=== PATIENT | female | born 1970 | race Caucasian/White ===

== ENCOUNTER 2018-06-25 10:53 | Outpatient (RCR) | payer MEDICAID, SELFPAY | END 2018-06-25 23:59 | LOC: NS 10:53 | PROVIDERS: Visit Provider Orthopaedic Surgery | DX: E66.9 Obesity, unspecified (principal); Z68.42 Body mass index [BMI] 45.0-49.9, adult; Z71.3 Dietary counseling and surveillance | CPT/HCPCS: 97802 ==

== ENCOUNTER 2022-10-19 10:47 | Emergency (ER) | payer MEDICAID, SELFPAY ==
[2022-10-19 10:48] VITALS: BP 184/108; PULSE 99; RESP 14; TEMP 36.4; O2SAT 97; BMI 50.3
--- NOTE | 2022-10-19 11:19 | RAD_ITS ---
EXAM: XR CHEST, 1 VIEW CLINICAL INDICATION: chest pain TECHNIQUE: Frontal view of the chest. COMPARISON: No relevant prior studies available. FINDINGS: LUNGS AND PLEURAL SPACES: Unremarkable. No consolidation or edema. No pneumothorax. No effusion. HEART: Unremarkable. Cardiac silhouette not enlarged. MEDIASTINUM: Central airways and mediastinal contour are unremarkable. BONES/JOINTS: Unremarkable. SOFT TISSUES: Unremarkable. RAD/Chest 1 View (Portable) IMPRESSION: No radiographic evidence of acute cardiopulmonary disease. Electronically Signed: Elder Ross MD at 12:32 EDT ,
--- NOTE | 2022-10-19 11:19 | EKG12_ITS ---
Test Reason : Blood Pressure : / mmHG Vent. Rate : 088 BPM Atrial Rate : 088 BPM P-R Int : 140 ms QRS Dur : 086 ms QT Int : 370 ms P-R-T Axes : -12 -02 018 degrees QTc Int : 447 ms Normal sinus rhythm with sinus arrhythmia Normal ECG Confirmed by IRAIDA LANDERS, MIGUEL ([id number]), assistant film editor STEPHANIE MARTÍNEZ ([id number]) on 10/21/2022 8:10:36 AM Referred By: FREEDOM Confirmed By:MIGUEL KHOURY MD
--- NOTE | 2022-10-19 11:22 | RAD_ITS ---
EXAM: XR RIGHT SHOULDER COMPLETE, 2 OR MORE VIEWS CLINICAL INDICATION: Fall injury. TECHNIQUE: Two or more views of the right shoulder. COMPARISON: No relevant prior studies available. FINDINGS: BONES/JOINTS: Unremarkable. No acute fracture. No subluxation. Normal alignment. Preservation of the joint space. No sclerotic or destructive changes observed. SOFT TISSUES: Unremarkable. No soft tissue swelling or gas. No radiopaque foreign body. RAD/Shoulder min 2 Views IMPRESSION: Negative right shoulder x-rays. Electronically Signed: Elder Ross MD at 12:32 EDT ,
--- NOTE | 2022-10-19 11:22 | CT_ITS ---
EXAM: CT HEAD WITHOUT INTRAVENOUS CONTRAST CLINICAL INDICATION: Seizure. TECHNIQUE: Multiple axial images were obtained of the head without intravenous contrast. This CT exam was performed using one or more of the following dose reduction techniques: automated exposure control, adjustment of the mA and/or kV according to patient size, and/or use of iterative reconstruction technique. RADIATION DOSE: CTDIvol = 47.06 mGy, DLP = 872.68 mGy-cm COMPARISON: No relevant prior studies available. FINDINGS: BRAIN AND EXTRA-AXIAL SPACES: Unremarkable. No intra- or extra-axial hemorrhage. No evidence of acute infarct. No intracranial mass or mass effect. There is preservation of the cooper/white matter interface. Posterior fossa structures are unremarkable. Ventricles are appropriate for age. No hydrocephalus. Basal cisterns are patent. BONES/JOINTS: Unremarkable. No discrete lytic or blastic abnormalities. SINUSES: Unremarkable as visualized. Clear. MASTOID AIR CELLS: Unremarkable. Clear. ORBITS: Visualized globes, extraocular muscles, optic nerves and retrobulbar fat appear unremarkable. CT/Brain/Head without Contrast IMPRESSION: Negative head/brain CT without intravenous contrast. Electronically Signed: Elder Ross MD at 12:31 EDT ,
[2022-10-19 11:31] VITALS: O2SAT 98
[2022-10-19] MEDS: 0.9% Normal Saline 1,000 ML 1000 ML IV (11:31)
[2022-10-19 11:34] LABS: Absolute Lymphocyte Count 1.89 X10^3/uL (0.83-4.51); Absolute Neutrophil Count 8.1 X10^3/uL (2.0-7.7); Basophil# 0.04 X10^3/uL; Basophil% 0.4 % (0-1); Eosinophil# 0.14 X10^3/uL; Eosinophils% 1.3 % (0-5); Hematocrit 43.1 % (37-47); Hemoglobin 13.8 g/dL (12.0-15.0); Lymphocyte # 1.89 X10^3/ul (0.83-4.51); Lymphocyte % 17.6 % (19-41); Mean Corpuscular Hgb 28.5 pg (27.0-32.0); Mean Platelet Vol. 9.1 fl (6.2-12.0); Monocyte# 0.55 X10^3/uL; Monocyte% 5.1 % (0-10); NRBC Flagged by Analyzer 0 % (0-5); Neutrophil # 8.06 X10^3/uL (2.7-7.7); Neutrophil % 75.1 % (47-70); Platelet Count 370 K/mm3 (150-450); RBC Distribution Width CV 13.6 % (11.6-14.6); RBC Distribution Width SD 44.4 fl (35.1-43.9); Red Blood Count 4.84 M/mm3 (4.2-5.4); White Blood Count 10.7 K/mm3 (4.4-11.0)
--- NOTE | 2022-10-19 11:38 | EDS_ITS ---
HPI <ROSE Durand - Last Filed: 10/19/22 13:40> History of Present Illness Chief Complaint: Seizure Narrative Narrative: Patient is a 52-year-old female with history of morbid obesity, hypertension who does not see a primary care physician who presents to the emergency department after a syncopal episode/seizure while watching a baseball game. She was outside watching a young nephew's baseball game, when they went to sit down, per the bystanders, she was falling down, she was caught and then she had a shaking like seizure for 2 minutes. It is unknown whether the patient had a postictal episode. The patient remembers being in the ambulance. She denies any history of seizure, she has been feeling more lightheaded and near syncopal over the last several weeks. She denies any chest pain or shortness of breath. She does complain of right shoulder pain. She is not sure if she fell on it or not. Per the bystanders did not hit her head or neck. Patient is moving all extremities and acting appropriate this time. PFSH <ROSE Durand - Last Filed: 10/19/22 13:40> REPLACED BY [facility] Medical History (Updated 10/19/22 @ 13:39 by ROSE Durand) Hypertension Home Medications NK 10/19/22 [History Last Taken Unknown] Allergy/AdvReac Type Severity Reaction Status Date / Time amoxicillin [From Augmentin] Allergy Rash Verified 10/19/22 10:51 clavulanic acid Allergy Rash Verified 10/19/22 10:51 [From Augmentin] Social History Smoking Status: Current every day smoker tobacco type: cigarettes ROS <ROSE Durand - Last Filed: 10/19/22 13:40> ROS ED ROS Narrative Constitutional: Negative for fever, chills, weight loss, weakness Eyes: Negative for vision loss, vision change, double vision ENT: Negative for any sore throat, ear pain, congestion Cardiovascular: Negative for any chest pain, tightness, palpitations Respiratory: Negative for any cough, sputum production, hemoptysis, dyspnea, dyspnea on exertion, orthopnea Gastrointestinal: Negative for any abdominal pain, nausea, vomiting, diarrhea, constipation, blood in stool, blood in vomit : Negative for any urinary frequency, dysuria, retention, blood in urine Muscle skeletal: Negative for any muscle joint pain, stiffness, myalgias, arthralgias, neck pain, back pain. Positive for right shoulder pain Neurological: Negative for any headache, numbness or tingling, dizziness. Positive for syncope/seizure Skin: Negative for any rashes, lumps, itching, abrasions, lacerations Psychiatric: Negative for any depression, anxiety, stress, suicidal ideation, homicidal ideation Hematologic: Negative for any easy bruising, excessive bruising, easy bleeding Allergies: Negative for any eczema, hives, rash EXAM <ROSE Durand - Last Filed: 10/19/22 13:40> Physical Exam Narrative Exam Narrative: Vital signs reviewed. HEET: Head normocephalic atraumatic, TMs clear bilaterally. Posterior pharynx is clear, moist mucous membranes. Nares clear bilaterally. Pupils are equal round reactive to light. Negative for any hemotympanum, negative for any septal hematoma. Oral airway appears intact, no evidence of blood in the mouth, no evidence of biting of the tongue. Neck: Supple with no lymphadenopathy or tenderness. No signs of meningismus, negative jolt sign. Cardiac: Regular rate and rhythm no murmurs gallops or rubs, equal peripheral p ulses bilaterally. Respiratory: Lungs clear to auscultation bilaterally. No chest tenderness. Abdomen: Soft, nontender, nondistended. No abdominal bruit or pulsatile masses. No hepatosplenomegaly Extremities: No peripheral edema, no signs of gross trauma or deformity. Active full range of motion of all extremities. Patient has pain to the right shoulder, proximal humerus. Neuro: Cranial nerves II through XII intact, no focal neurological deficits. NIH score 0. No postictal signs. Skin: Clean dry and intact with no rash, purpura, petechiae, vesicles or pustules. Backs/flank: No CVA tenderness, no midline spinal tenderness, no deformity. Psych: Normal mood and affect. No SI, HI or acute psychosis. Const Vital Signs: 10/19/22 10:48 10/19/22 11:31 10/19/22 13:26 Temperature 97.6 F L Temperature Source Temporal Pulse Rate 99 82 Respiratory Rate 14 19 H Blood Pressure 184/108 H 172/86 H Blood Pressure Mean 133 114 Pulse Ox 97 98 98 Oxygen Delivery Method Room Air Room Air Room Air Positive well nourished, well developed and obese General Appearance ED: well developed Nutritional Appearance: obese <Dr. Se Mixon DO - Last Filed: 10/19/22 13:58> Physical Exam Const Vital Signs: 10/19/22 10:48 10/19/22 11:31 10/19/22 13:26 Temperature 97.6 F L Temperature Source Temporal Pulse Rate 99 82 Respiratory Rate 14 19 H Blood Pressure 184/108 H 172/86 H Blood Pressure Mean 133 114 Pulse Ox 97 98 98 Oxygen Delivery Method Room Air Room Air Room Air MDM <JUSTINE DurandC - Last Filed: 10/19/22 13:40> MDM Lab Data Attestation: I reviewed the patient's lab results. Labs: Laboratory Results - last 24 hr 10/19/22 10/19/22 10/19/22 11:25 11:25 12:44 WBC 10.7 RBC 4.84 Hgb 13.8 Hct 43.1 MCV 89.0 MCH 28.5 MCHC 32.0 RDW Std Deviation 44.4 H RDW Coeff of Aby 13.6 Plt Count 370 MPV 9.1 Immature Gran % (Auto) 0.500 Neut % (Auto) 75.1 H Lymph % (Auto) 17.6 L Dundy % (Auto) 5.1 Eos % (Auto) 1.3 Baso % (Auto) 0.4 Absolute Neuts (auto) 8.1 H Absolute Lymphs (auto) 1.89 Nucleated RBC % 0 Sodium 139 Potassium 4.2 Chloride 106 Carbon Dioxide 26.0 Anion Gap 7 BUN 12 Creatinine 0.88 Estim Creat Clear Calc 57.07 Est GFR (MDRD) Af Amer 88 Est GFR (MDRD) Non-Af 72 BUN/Creatinine Ratio 13.7 Glucose 128 H Lactic Acid 2.2 H* Calcium 8.9 Magnesium 2.2 Troponin I High Sens 13 TSH 3.61 Radiography Diagnostic Testing: Clinical Impression(s) from Imaging Studies Chest X-Ray 10/19/22 11:19 IMPRESSION: No radiographic evidence of acute cardiopulmonary disease. Electronically Signed: Elder Ross MD at 12:32 EDT , Brain CT 10/19/22 11:22 IMPRESSION: Negative head/brain CT without intravenous contrast. Electronically Signed: Elder Ross MD at 12:31 EDT , Shoulder X-Ray 10/19/22 11:22 IMPRESSION: Negative right shoulder x-rays. Electronically Signed: Elder Ross MD at 12:32 EDT , EKG Normal sinus rhythm: Attestation: I personally reviewed and interpreted this EKG as follows: Comments: Normal sinus rhythm with sinus arrhythmia, rate of 88 bpm, MO interval 140 ms, QRS duration 86 ms, no acute ST elevation, no acute infarct noted. Treatment and Re-Evaluation :: Patient initial assessment appears well, vital signs are stable, patient is in no distress. No evidence of any toxicity. Patient is alert and orient x4. She is moving all extremities. She does have pain to her right shoulder. Patient will receive a cardiac/neurological work-up. This would including troponins, CT of the brain, as well as chest x-ray. Patient was given 1 L of normal saline. Lactic acid will be completed to see if it is elevated secondary to having a seizure. Patient was alert and oriented the entire time here. Patient received multiple laboratory values, patient's chest x-ray, right shoulder x-ray is gross unremarkable for any acute osseous abnormality. Patient's laboratory values showed a normal CBC, chemistries were unremarkable, patient's lactic acid was 2.2 which is nonspecific. Patient's EKG was unremarkable, there is no evidence to suspect any ACS, MA. Patient's troponin was negative. A repeat was negative. Patient CT of the brain was unremarkable, negative for any mass or intracranial hemorrhage. At this time, I do believe the patient is stable for discharge. She was given Tylenol for pain of her shoulder. She will need to follow-up with both her primary care provider as well as her neurologist. She was given strict return precautions. She will have right arm restrictions while at work. Secondary to the pain, shoulder strain. I spoke with the patient, the patient's spouse, both verbally understand, had no further questions. They were given return precaution. Patient stable for discharge. <Dr. Se Mixon, DO - Last Filed: 10/19/22 13:58> [facility] Narrative Medical decision making narrative: I have personally performed a face to face assessment of the patient and have reviewed the ALEKSANDR Note. I performed a substantive portion of the visit including all aspects of the following. My bello findings include: History: Patient presents with possible seizure that occurred today. Patient states she remembers standing at a baseball game. Patient states she just finished a cigarette. Patient states next and she remembers was waking up in the back of the ambulance. Patient states the paramedics told her she had a grand mal seizure. Patient denies any history of seizures. Patient denies biting her tongue. Patient denies any incontinence of urine or stool. Patient admits to some pain in her right shoulder. Patient does not know if she fell on this. Patient denies any headaches. Patient denies any nausea or vomiting. Exam: Vital signs are stable except for an elevated blood pressure of 184/108. Patient is afebrile. Patient is in no acute distress. Oral mucosa is pink and moist. There are no abrasions of the tongue or buccal mucosa. Oropharynx is clear. Airway is patent. Neck is supple. Trachea is midline. There is no JVD. Heart was regular rate and rhythm. Lungs are clear and equal bilateral. Abdomen is soft. Bowel sounds are normal. There is no tenderness. Cranial nerves II through XII are intact. There are no focal motor or sensory deficits noted. There is some mild tenderness over the right shoulder. Range of motion was limited in all motions of the right shoulder secondary to pain. There is no obvious deformity noted. Medical Decision Making: Differential diagnosis includes new onset seizure, syncope, cardiac dysrhythmia, cardiac ischemia, hypothyroidism, hyperthyroidism, and intracranial bleeding. CT scan of the brain will be obtained to assess for intracranial bleeding and mass. CBC will be obtained to assess for leukocytosis and anemia. Basic metabolic profile will be obtained to assess for renal function and electrolyte abnormality. Lactate will be obtained to assess for lactic acidosis and sepsis. High-sensitivity troponin will be obtained to assess for cardiac ischemia. TSH will be obtained to assess for hypothyroidism and hyperthyroidism. Serum magnesium will be obtained to assess for hypomagnesemia. CBC was reviewed and was within normal limits. Basic metabolic profile was reviewed and was essentially within normal limits. Serum lactate was reviewed and was slightly elevated at 2.2. High-sensitivity troponin was reviewed and was normal at 13. TSH was reviewed and was normal at 3.61. Magnesium was reviewed and was normal at 2.2. CT scan of the brain was obtained. There is no acute intracranial abnormality. This was interpreted by the radiologist and was also independently reviewed by myself. Portable 1 view chest x-ray was obtained. On my independent interpretation, lung thorne are clear. There is normal cardiac silhouette. Bony thorax is normal. There is no acute process noted. Radiologist also interpreted the x-ray and agrees. X-rays of the right shoulder were obtained. There are 4 views. On my independent interpretation, there is no acute fracture. There is no dislocation. There is no soft tissue swelling. Radiologist also interpreted the x-rays and agrees. EKG was obtained. On my independent interpretation, it showed a normal sinus rhythm with a rate of 88. MO interval, QRS interval, and QTc intervals were all normal. Foster was normal. There are no acute ST or T wave changes. Patient was advised of her findings. Patient was instructed to follow-up with a primary care physician in 5 to 7 days. Patient was advised of the need for further outpatient evaluation of this questionable seizure. Patient understands and is agreeable with the plan. All questions were answered. Lab Data Labs: Laboratory Results - last 24 hr 10/19/22 10/19/22 10/19/22 11:25 11:25 12:44 WBC 10.7 RBC 4.84 Hgb 13.8 Hct 43.1 MCV 89.0 MCH 28.5 MCHC 32.0 RDW Std Deviation 44.4 H RDW Coeff of Aby 13.6 Plt Count 370 MPV 9.1 Immature Gran % (Auto) 0.500 Neut % (Auto) 75.1 H Lymph % (Auto) 17.6 L Dundy % (Auto) 5.1 Eos % (Auto) 1.3 Baso % (Auto) 0.4 Absolute Neuts (auto) 8.1 H Absolute Lymphs (auto) 1.89 Nucleated RBC % 0 Sodium 139 Potassium 4.2 Chloride 106 Carbon Dioxide 26.0 Anion Gap 7 BUN 12 Creatinine 0.88 Estim Creat Clear Calc 57.07 Est GFR (MDRD) Af Amer 88 Est GFR (MDRD) Non-Af 72 BUN/Creatinine Ratio 13.7 Glucose 128 H Lactic Acid 2.2 H* Calcium 8.9 Magnesium 2.2 Troponin I High Sens 13 TSH 3.61 Radiography Diagnostic Testing: Clinical Impression(s) from Imaging Studies Chest X-Ray 10/19/22 11:19 IMPRESSION: No radiographic evidence of acute cardiopulmonary disease. Electronically Signed: Elder Ross MD at 12:32 EDT , Brain CT 10/19/22 11:22 IMPRESSION: Negative head/brain CT without intravenous contrast. Electronically Signed: Elder Ross MD at 12:31 EDT , Shoulder X-Ray 10/19/22 11:22 IMPRESSION: Negative right shoulder x-rays. Electronically Signed: Elder Ross MD at 12:32 EDT , Discharge Plan Triage Chief Complaint: Seizure ED Midlevel Provider: Jossue Kay ED Provider: Se Mixon Dx/Rx/DC Orders Clinical Impression: Seizure, CHI (closed head injury), Muscle strain of right shoulder Instructions: Concussion Dc, ED Muscle Strain, Extremity, ED Seizure New Onset Unknown ... Prescriptions: No Action NK Stand Alone Forms: Work Status Form Primary Care Provider: Care Physician,No Primary Referrals: Vamshi Monge MD [Non-Staff] - (Please follow-up secondary to your seizure) Stephanie Malloy DO [Med Staff - Active Staff] - (Please follow-up with the PCP) Care Physician,No Primary [Primary Care Provider] - Activity Restrictions/Additional Instructions: Please decrease motion to the right arm during work. You need to follow-up with the PCP as well as neurology for this work-up. Disposition Disposition: Home, Self Care
[2022-10-19 12:00] LABS: Anion Gap 7 (5-15); BUN 12 mg/dL (7-18); BUN/Creat Ratio 13.7 RATIO (10-20); Calcium,Total 8.9 mg/dL (8.5-10.1); Chloride 106 mmol/L (98-107); Creatinine, Serum 0.88 mg/dL (0.55-1.02); EST Glomerular Filtration Rate 72 mL/min (>60); Est Glom Filt Rate - Afr Amer 88 mL/min (>60); Estimated Creatinine Clearance 57.07 ml/min; Glucose 128 mg/dL (74-106); Magnesium 2.2 mg/dL (1.6-2.6); Potassium 4.2 mmol/L (3.5-5.1); Sodium Level 139 mmol/L (136-145); Thyroid Stim Hormone (TSH) 3.61 uIU/mL (0.358-3.74); Troponin-I HS (w/2H Reflex) 13 pg/mL (3.0-54.0)
[2022-10-19 13:16] LABS: Lactic Acid 2.2 mmol/L (0.4-1.9)
[2022-10-19 13:26] VITALS: BP 172/86; PULSE 82; RESP 19; O2SAT 98
[2022-10-19 13:31] LABS: Reflex Troponin-HS? (from REC) Y
[2022-10-19] MEDS: Acetaminophen 500 MG Tablet 1000 MG PO (13:40)
[2022-10-19 13:59] VITALS: BP 134/66; PULSE 72; RESP 15; O2SAT 98
[2022-10-19 14:06] LABS: Troponin-I HS 44 pg/mL (3.0-54.0)
== END 2022-10-19 14:00 | disposition home or self-care (01) ==
PROVIDERS: Nurse Practitioner; Emergency Provider Emergency Medicine; Visit Provider Emergency Medicine
DX: R56.9 Unspecified convulsions (principal); E66.01 Morbid (severe) obesity due to excess calories; F17.210 Nicotine dependence, cigarettes, uncomplicated; S09.90XA Unspecified injury of head, initial encounter; I10 Essential (primary) hypertension; S46.911A Strain of unspecified muscle, fascia and tendon at shoulder and upper arm level, right arm, initial encounter; R55 Syncope and collapse; W19.XXXA Unspecified fall, initial encounter
CPT/HCPCS: 70450; 71045; 73030; 80048; 83605; 83735; 84443; 84484; 85025; 93005; 96360; 96361; 99285; J7030; A4216